=== PATIENT | female | born 1990 | race Caucasian/White ===

== ENCOUNTER 2024-05-30 23:29 | Emergency (ER) | payer BC ==
[~2024-05-30] VITALS: Ht 154.9 cm; Wt 60.3 kg
[2024-05-30 23:40] VITALS: BP_SYST 113; PULSE 68; RESP 20; TEMP 98; O2SAT 98
[2024-05-30] MEDS: DEXAMETHASONE SOD PHOSPHATE 10 MG/ML VIAL IM ONE (23:50)
[2024-05-31] MEDS ORDERED: FAMO40TA71 PO (00:01)
[2024-05-31] MEDS ORDERED: METH-776 PO (00:01)
[2024-05-31 00:35] VITALS: BP_SYST 113; PULSE 68; RESP 20; TEMP 97.8; O2SAT 98
== END 2024-05-31 00:35 | disposition home or self-care (01) ==
LOC: SED 23:29
DX: R21 Rash and other nonspecific skin eruption (principal); T78.1XXA Other adverse food reactions, not elsewhere classified, initial encounter; X58.XXXA Exposure to other specified factors, initial encounter
CPT/HCPCS: 99283; 96372; J1100